=== PATIENT | female | born 1940 | race Caucasian/White ===

== ENCOUNTER 2017-03-12 11:02 | Emergency (ER) | payer OTHER ==
[2017-03-12] MEDS ORDERED: FLUORESCEIN STRIP 1 MG/STRIP STRIP ONE (12:14)
[2017-03-12] MEDS ORDERED: TETRACAINE 0.5% OPHTH 15 ML BOTTLE ONE (12:15)
--- NOTE | 2017-03-12 13:29 | ER PHYSICIAN DOCUMENTATION ---
Physician Documentation [facility] Name:Anisa Tan Age:77 yrs Sex:Female :1940 Arrival Date:03/12/2017 Time:11:02 Bed2 Private MD:Jovany Irene ED, Tom Disposition: 03/12 13:30 Chart complete. tl1 Disposition: 03/12/17 12:51 Discharged to Home/Self Care. Impression: Chemical Conjunctivitis. - Condition is Good. - Discharge Instructions: CONJUNCTIVITIS Chemical - EYE EXPOSURE, Chemical. - Prescriptions for Bacitracin 500 unit/g Ophthalmic Ointment - instill 0.5 inch ribbon by OPHTHALMIC route every 6 hours; 3.5 tube. Acular 0.5 % Ophthalmic Drops - instill 1 drop by OPHTHALMIC route every 6 hours into affected eye(s); 5 milliliter. - Medical Reconciliation form form. - Follow up: Yaron Brown MD; When: 7 - 10 days; Reason: Recheck today's complaints, Continuance of care. - Problem is new. - Symptoms are unchanged. - Notes: Use artificial tears every 2 hours or so for the next day or two, as needed , if it helps. HPI: 11:19 This 77 yrs old Female presents to ER with complaints of Eye Injury - LEFT. tl1 11:20 She wanted to wear her contacts for the first time in about 6 months, took them out of tl1 the solution she had been soaking them in, and then washed them off with some hand soap and rinsed them. Within seconds of putting the first contact in her left eye, she noted a burning sensation ( at about 8 AM), and took it out. She rinsed her eye with a few drops of artificial tears. but the burning has persisted. She thinks her vision is a little bit worse than normal in her left eye. She has mild light sensitivity, and moderate conjuncitval redness.. 11:20 She says that her vision is such that she cannot drive, even with glasses . she has tl1 seen Dr Brown in the past.. Historical: - Allergies: No known drug Allergies; - Home Meds: 1. carvedilol oral 2. clodidogrel 3. aspirin 81 mg oral tab 4. Simvastatin Oral 5. Levothroid Oral 6. Oxybutynin Chloride Oral 7. Calcium Citrate Oral 8. Nitroglycerin Oral - PMHx: [place]; Angina Pectoris, Other Unspecified(July 21, 2014); - PSHx: stents placed; - Tetanus: < 10 years. - Ebola Screening: : Patient negative for fever greater than or equal to 101.5 degrees Fahrenheit, and additional compatible Ebola Virus Disease symptoms. Patient denies exposure to infectious person. Patient denies travel to an Ebola-affected area in the 21 days before illness onset. No symptoms or risks identified at this time. . - Immunization history: Unable to Obtain. - Social history: Smoking status: Patient states was never smoker of tobacco. Patient uses alcohol occasionally. ROS: 11:20 Eyes: Positive for blurry vision, photophobia, redness, tearing, visual disturbance. tl1 11:20 All other systems are negative. Exam: 11:20 Visual Acuity: I have reviewed the nursing documentation. tl1 11:20 Constitutional: The patient appears in no acute distress. 11:20 Head/face: Exam is negative for acute changes. 11:20 Eyes: Periorbital structures: appear normal, Pupils: equal, round, and reactive to light and accomodation, Extraocular movements: intact throughout, Conjunctiva: injected, in the left eye, Corneas: a fluorescein strip employed to appreciate the findings, diffuse punctate/ fluffy keratitis, more pronounced on the lower 2/3 of the cornea. Anterior chamber was clear.. 11:20 ENT: External ear(s): 11:20 Neck: ROM/movement: is normal, is supple. 11:20 Cardiovascular: Rate: normal. 11:20 Respiratory: Respirations: normal. Vital Signs: 11:20 BP 136 / 69; Pulse 86; Resp 18; Temp 98.1; Pulse Ox 96% on R/A; Weight 66.68 kg; Height rs 5 ft. 4 in. (162.56 cm); Pain 5/10; 11:20 Body Mass Index 25.23 (66.68 kg, 162.56 cm) rs Visual Acuity: 11:20 Left Eye Pupil size 3 mm, Normal, Brisk, React To Light, Reactive To Accomodation; rs Without Lenses; MDM: 11:19 Patient medically screened. tl1 12:30 Differential diagnosis: Chemical conjunctivitis in left eye. Data reviewed: vital tl1 signs, nurses notes, and as a result, I will discharge patient. Counseling: I had a detailed discussion with the patient and/or guardian regarding: the historical points, exam findings, and any diagnostic results supporting the discharge/admit diagnosis, the need for outpatient follow up, to return to the emergency department if symptoms worsen or persist or if there are any questions or concerns that arise at home. Medication response: The patient's symptoms have improved. Response to treatment: There is no appreciated change of the patient's symptoms at this time, and as a result, I will discharge patient. Physician consultation: Yaron Brown MD was called at 12:20, was contacted at 12:20, regarding patient's condition, outpatient follow-up, and will see patient in office, next week. ED course: Slit lamp exam showed mild left keratitis and moderate conjunctival hyperemia. Visual acuity was , with glasses, 20/60 -2 on the right, and 20/80 -3 on the left.. Dispensed Medications: 12:04 Drug: Fluorescein Strip 1 strip; {Note: by .} Route: Ophthalmic; Site: left eye;lpr 12:04 Drug: Tetracaine Drops 0.5 % 1 drops; Route: Ophthalmic; Site: left eye; lpr Signatures: Amber Szymanski RN RN rs Barbara Titus RN RN lpr Leigh, Tom, MD MD tl1
--- NOTE | 2017-03-12 13:29 | ER NURSING DOCUMENTATION ---
Nurse's Notes [facility] Name:Anisa Tan Age:77 yrs Sex:Female :1940 Arrival Date:03/12/2017 Time:11:02 Bed2 Private MD:Jovany Irene Diagnosis:Chemical Conjunctivitis Presentation: 03/12 11:14 Presenting complaint: Patient states: States she attempted putting a contact in her rs left eye this morning, and felt like it had cleaning fluid on it. She got the lens out, but it is painful. No change in vision. Transition of care: Home. Mechanism of Injury: No Mechanism of Injury. The patient denies any loss of vision. 11:14 Acuity: WILI 3 rs 11:14 Method Of Arrival: Private Vehicle rs Triage Assessment: 11:20 Neuro: No deficits noted. Level of Consciousness is awake, alert, Oriented to person, rs place, time, event. Cardiovascular: No deficits noted. Capillary refill < 3 seconds. Respiratory: No deficits noted. Respiratory effort is even, unlabored, Respiratory pattern is regular, symmetrical. Derm: No deficits noted. Skin is pink, warm & dry. 13:13 General: Appears in no apparent distress, well developed, well nourished, well groomed, rs Behavior is cooperative, pleasant. Pain: Complains of pain in left eye Pain currently is 5 out of 10 on a pain scale. EENT: Eyes are tearing on outer aspect of conjuctiva of left eye, iris of left eye and inner aspect of conjunctiva of left eye Sclera/Cornea are reddened in outer aspect of conjuctiva of left eye and inner aspect of conjunctiva of left eye Reports Denies blurred vision. Historical: - Allergies: No known drug Allergies; - Home Meds: 1. carvedilol oral 2. clodidogrel 3. aspirin 81 mg oral tab 4. Simvastatin Oral 5. Levothroid Oral 6. Oxybutynin Chloride Oral 7. Calcium Citrate Oral 8. Nitroglycerin Oral - PMHx: [place]; Angina Pectoris, Other Unspecified(July 21, 2014); - PSHx: stents placed; - Tetanus: < 10 years. - Ebola Screening: : Patient negative for fever greater than or equal to 101.5 degrees Fahrenheit, and additional compatible Ebola Virus Disease symptoms. Patient denies exposure to infectious person. Patient denies travel to an Ebola-affected area in the 21 days before illness onset. No symptoms or risks identified at this time. . - Immunization history: Unable to Obtain. - Social history: Smoking status: Patient states was never smoker of tobacco. Patient uses alcohol occasionally. Screenin:21 Infectious Disease Risk None. Abuse screen: Denies threats or abuse. Nutritional rs screening: No deficits noted. Vital Signs: 11:20 BP 136 / 69; Pulse 86; Resp 18; Temp 98.1; Pulse Ox 96% on R/A; Weight 66.68 kg; Height rs 5 ft. 4 in. (162.56 cm); Pain 5/10; 11:20 Body Mass Index 25.23 (66.68 kg, 162.56 cm) rs Visual Acuity: 11:20 Left Eye Pupil size 3 mm, Normal, Brisk, React To Light, Reactive To Accomodation; rs Without Lenses; ED Course: 11:03 Patient arrived in ED. lm3 11:03 Jovany Irene MD is Private Physician. lm3 11:14 Amber Szymanski RN is Primary Nurse. rs 11:19 Ryan Eli MD is Attending Physician. tl1 11:20 Valuables Remains with patient Patient has correct armband on for positive rs identification. Bed in low position. Call light in reach. Adult w/ patient. Door closed. Noise minimized. Lights dimmed. Verbal reassurance given. 11:29 Triage completed. rs 11:30 Eye irrigation of left eye with 1 liter normal saline, Patient tolerated well. rs 12:50 Yaron Brown MD is Referral Physician. tl1 Administered Medications: 12:04 Drug: Fluorescein Strip 1 strip; {Note: by .} Route: Ophthalmic; Site: left eye;lpr 12:04 Drug: Tetracaine Drops 0.5 % 1 drops; Route: Ophthalmic; Site: left eye; lpr Outcome: 12:51 Discharge ordered by . tl1 12:59 Discharged to home ambulatory. rs 12:59 Condition: improved 12:59 Discharge instructions given to patient, significant other, Instructed on discharge instructions, follow up and referral plans. medication usage, Demonstrated understanding of instructions, medications, Prescriptions given X 2. 13:28 Patient left the ED. rs Signatures: Amber Szymanski RN RN rs Barbara Titus RN RN lpr Ryan Eli MD MD tl1 Anasatsiya Rollins lm3
== END 2017-03-12 13:29 | disposition home or self-care (01) ==
LOC: ER 11:02
DX: H10.212 Acute toxic conjunctivitis, left eye (principal); I25.2 Old myocardial infarction; Z95.5 Presence of coronary angioplasty implant and graft; Z79.82 Long term (current) use of aspirin; Z79.899 Other long term (current) drug therapy
CPT/HCPCS: 99283